=== PATIENT | male | born 1935 | race Caucasian/White ===

== ENCOUNTER 2017-07-24 09:50 | Emergency (ER) | payer OTHER ==
[~2017-07-24] VITALS: Ht 177.8 cm; Wt 90.7 kg
[~2017-07-24 09:50] MED LIST: ASPI81CH PO; ASPI81EC; ASPI81EC PO; CALCIUM; CALGLU500; CHOL10002; CLOP75 PO; CYAN1000 PO; DIPASPER; DIPASPER PO; DIPY25; FURO20 PO; FURO40; HYDACE5 PO; HYDR1TAB94 PO; LISI20; LISI20 PO; LOSA50 PO; LOVA40; MAGOXI400; MAGOXI400 PO; MEGARED KRILL OIL; MEGARED KRILL OIL PO; OMEP20ER; OMEP20ER PO; POLTRIOPSO OD; POTCHL20ER PO; SIMV10 PO; UBID10 PO
[2017-07-24 10:27] LABS: BASOPHILS ABSOLUTE AUTO 0.04 K/mm3 (0.00-0.23); BASOPHILS PERCENT AUTO 0 % (0-2); EOSINOPHILS ABSOLUTE AUTO 0.22 K/mm3 (0.00-0.68); EOSINOPHILS PERCENT AUTO 2 % (0-6); Hematocrit 42.9 % (37.0-53.0); Hemoglobin 13.9 g/dL (13.5-17.5); IMMATURE GRAN ABSOLUTE AUTO 0.02 K/mm3 (0.00-0.10); IMMATURE GRAN PERCENT AUTO 0 % (0-1); LYMPHOCYTES ABSOLUTE AUTO 1.96 K/mm3 (0.84-5.20); LYMPHOCYTES PERCENT AUTO 20 % (21-46); MONOCYTES ABSOLUTE AUTO 0.49 K/mm3 (0.16-1.47); MONOCYTES PERCENT AUTO 5 % (4-13); Mean Corpuscular HGB 27.9 pg (26.0-34.0); Mean Corpuscular HGB Conc 32.4 g/dL (31.5-36.5); Mean Corpuscular Volume 86 fL (80-100); Mean Platelet Volume 9.5 fL (9.1-12.4); NEUTROPHILS ABSOLUTE AUTO 6.94 K/mm3 (1.96-9.15); NEUTROPHILS PERCENT AUTO 72 % (41-73); Platelet Count 223 K/mm3 (150-400); RDW Coefficient Variation 13.2 % (11.7-14.2); RDW Standard Deviation 41.3 fL (35.1-46.3); Red Blood Cell Count 4.98 M/mm3 (4.30-5.90); White Blood Cell Count 9.67 K/mm3 (4.00-11.30)
[2017-07-24 10:44] LABS: Anion Gap 5 mmol/L (6-16); Blood Urea Nitrogen 17 mg/dL (8-24); Bun/Creatinine Ratio 12.3 (12.0-20.0); CO2, Blood 27 mmol/L (21-32); Calcium, Blood 8.4 mg/dL (8.5-10.1); Chloride, Blood 108 mmol/L (98-108); Creatinine, Blood 1.38 mg/dL (0.60-1.20); Glomerular Filtration Rate 52 (60-); Glucose, Blood 85 mg/dL (70-99); Potassium, Blood 4.3 mmol/L (3.5-5.5); Sodium, Blood 140 mmol/L (136-145); Troponin I <0.015 ng/mL (0.000-0.040)
[2017-07-24] MEDS ORDERED: Mobic7.5 MG PO (11:07)
[2017-07-24] MEDS ORDERED: Norco 5-325 Ta1 EACH PO (11:07)
[2017-07-24] MEDS ORDERED: HEARTBURN RELI150 M1 PO (11:12)
[2017-07-24] MEDS ORDERED: TAMS.4ER PO (11:12)
== END 2017-07-24 11:39 | disposition home or self-care (01) ==
LOC: ER 09:50
PROVIDERS: Emergency Medicine
DX: S16.1XXA Strain of muscle, fascia and tendon at neck level, initial encounter (principal); M54.12 Radiculopathy, cervical region; I10 Essential (primary) hypertension; E78.00 Pure hypercholesterolemia, unspecified; Z79.899 Other long term (current) drug therapy; Z79.82 Long term (current) use of aspirin; X50.0XXA Overexertion from strenuous movement or load, initial encounter
CPT/HCPCS: 36415; 72040; 80048; 84484; 85025; 93005; 93010; 99284

== ENCOUNTER → 2018-09-20 | Outpatient (CLI) | payer OTHER ==
[~2018-09-20] MED LIST changes: +HEARTBURN RELI150 M1 PO; +Mobic7.5 MG PO; +Norco 5-325 Ta1 EACH PO; +TAMS.4ER PO
== END | disposition home or self-care (01) ==
LOC: LAB SHORT 13:56 → PLD 13:56
DX: D48.5 Neoplasm of uncertain behavior of skin (principal)
CPT/HCPCS: 88305

== ENCOUNTER 2019-04-28 13:24 | Inpatient (IN) | payer OTHER ==
[~2019-04-28] VITALS: Ht 177.8 cm; Wt 87.3 kg
[~2019-04-28 13:24] MED LIST changes: -ASPI81CH PO; +Aspir 8181 MG PO; -FURO20 PO; +FURO40 PO; -LOSA50 PO; +LOSARTAN POTAS100 MG PO; -MEGARED KRILL OIL PO
[2019-04-28 13:37] LABS: Source, Urine Clean Catch
[2019-04-28 13:45] LABS: Bilirubin, Urine Neg (Neg); Blood, Urine Neg (Neg); Glucose Qualitative, Urine Neg (Neg); Ketones, Urine Neg (Neg); Leukocyte Esterase, Urine 1+ (Neg); Nitrite, Urine Neg (Neg); Protein, Urine Neg (Neg); Urobilinogen, Urine NORM (Normal); pH, Urine 6.5 (5.0-8.0)
[2019-04-28] MEDS ORDERED: CALC.25 PO (13:53)
[2019-04-28] MEDS ORDERED: AMLO10 PO (13:53)
[2019-04-28] MEDS ORDERED: LIDO700A20 TOP (13:54)
[2019-04-28] MEDS ORDERED: Hair, Skin & N1 EACH PO (13:57)
[2019-04-28] MEDS ORDERED: DOXA4 PO (13:59)
[2019-04-28 14:01] LABS: Appearance, Urine Clear (Clear); Color, Urine Yellow (P-Yellow)
[2019-04-28 14:03] LABS: Red Blood Cells, Urine Not Seen /hpf (0-2); Squamous Epithelial Cells Rare /hpf (Few); White Blood Cells, Urine 0-2 /hpf (0-5)
[2019-04-28 14:04] LABS: Bacteria Few /hpf
[2019-04-28 14:06] LABS: BASOPHILS ABSOLUTE AUTO 0.03 K/mm3 (0.00-0.23); BASOPHILS PERCENT AUTO 0 % (0-2); EOSINOPHILS ABSOLUTE AUTO 0.23 K/mm3 (0.00-0.68); EOSINOPHILS PERCENT AUTO 3 % (0-6); Hematocrit 43.1 % (37.0-53.0); Hemoglobin 13.5 g/dL (13.5-17.5); IMMATURE GRAN ABSOLUTE AUTO 0.02 K/mm3 (0.00-0.10); IMMATURE GRAN PERCENT AUTO 0 % (0-1); LYMPHOCYTES ABSOLUTE AUTO 1.93 K/mm3 (0.84-5.20); LYMPHOCYTES PERCENT AUTO 23 % (21-46); MONOCYTES ABSOLUTE AUTO 0.44 K/mm3 (0.16-1.47); MONOCYTES PERCENT AUTO 5 % (4-13); Mean Corpuscular HGB 28.4 pg (26.0-34.0); Mean Corpuscular HGB Conc 31.3 g/dL (31.5-36.5); Mean Corpuscular Volume 91 fL (80-100); Mean Platelet Volume 10.5 fL (9.1-12.4); NEUTROPHILS ABSOLUTE AUTO 5.78 K/mm3 (1.96-9.15); NEUTROPHILS PERCENT AUTO 69 % (41-73); Platelet Count 198 K/mm3 (150-400); RDW Coefficient Variation 13.2 % (11.7-14.2); RDW Standard Deviation 44.4 fL (35.1-46.3); Red Blood Cell Count 4.75 M/mm3 (4.30-5.90); White Blood Cell Count 8.43 K/mm3 (4.00-11.30)
[2019-04-28 14:29] LABS: Alanine Aminotransfer (ALT/SGP 13 U/L (12-78); Albumin, Blood 3.4 g/dL (3.4-5.0); Albumin/Globulin Ratio 1.2 (0.8-1.8); Alk Phos 95 U/L (50-136); Anion Gap 7 mmol/L (6-16); Aspartate Aminotrans (AST/SGOT 10 U/L (12-37); Bilirubin, Total 0.7 mg/dL (0.1-1.0); Blood Urea Nitrogen 35 mg/dL (8-24); Bun/Creatinine Ratio 16.3 (12.0-20.0); CO2, Blood 25 mmol/L (21-32); Calcium, Blood 8.5 mg/dL (8.5-10.1); Chloride, Blood 109 mmol/L (98-108); Creatinine, Blood 2.15 mg/dL (0.60-1.20); Globulin, Blood 2.8 g/dL (2.2-4.0); Glomerular Filtration Rate 31 (60-); Glucose, Blood 128 mg/dL (70-99); Potassium, Blood 4.5 mmol/L (3.5-5.5); Sodium, Blood 141 mmol/L (136-145); Total Protein, Blood 6.2 g/dL (6.4-8.2); Troponin I <0.015 ng/mL (0.000-0.040)
[2019-04-28] MEDS ORDERED: FISH OIL PO (16:21)
[2019-04-28] MEDS ORDERED: CALCIUM CIT 311 EACH PO (16:22)
--- NOTE | 2019-04-28 18:29 | NUR ---
PATIENT ARRIVED AT 1650 FROM ED VIA GURNEY. A&O X 3, PRESENTS WITH STUBBORN FACADE. CARDIAC RHYTHM SHOWS SECOND DEGREE C[facility] H[facility] I BLOCK, WITH INTERMITTENT EPISODES OF BRADYCARDIA TO MID 50'S. 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 PATIENT ASYMTOMATIC. LUNGS WITH FINE CRACKLES IN RLL, ON RA, DENIES SOB. USES URINAL WITH ASSISTANCE, HAS FREQUENCY POSSIBLY R/T BPH. DENIES CHEST DISCOMFORT. HAS INTERMITTENT L FLANK PAIN; HE WAS USING ABD BINDER WHICH HELPS WITH PAIN. ANDRÉS WILL STAY AT BEDSIDE TONIGHT.
--- NOTE | 2019-04-28 20:00 | NUR ---
PATIENT RESTING IN BED VISITING WITH FAMILY AND FRIENDS. UP TO SIDE OF BED TO USE URINAL WITHOUT DIFFICULTY. PATIENT HAVING NO COMPLAINT OF DIZZINESS OR WEAKNESS. PACER PATCHES REMAIN IN PLACE IF NEEDED.
[2019-04-29 03:19] LABS: BASOPHILS ABSOLUTE AUTO 0.03 K/mm3 (0.00-0.23); BASOPHILS PERCENT AUTO 0 % (0-2); EOSINOPHILS ABSOLUTE AUTO 0.28 K/mm3 (0.00-0.68); EOSINOPHILS PERCENT AUTO 4 % (0-6); Hematocrit 37.7 % (37.0-53.0); Hemoglobin 12.2 g/dL (13.5-17.5); IMMATURE GRAN ABSOLUTE AUTO 0.01 K/mm3 (0.00-0.10); IMMATURE GRAN PERCENT AUTO 0 % (0-1); LYMPHOCYTES ABSOLUTE AUTO 1.86 K/mm3 (0.84-5.20); LYMPHOCYTES PERCENT AUTO 26 % (21-46); MONOCYTES ABSOLUTE AUTO 0.49 K/mm3 (0.16-1.47); MONOCYTES PERCENT AUTO 7 % (4-13); Mean Corpuscular HGB 28.8 pg (26.0-34.0); Mean Corpuscular HGB Conc 32.4 g/dL (31.5-36.5); Mean Corpuscular Volume 89 fL (80-100); Mean Platelet Volume 10.4 fL (9.1-12.4); NEUTROPHILS ABSOLUTE AUTO 4.59 K/mm3 (1.96-9.15); NEUTROPHILS PERCENT AUTO 63 % (41-73); Platelet Count 190 K/mm3 (150-400); RDW Coefficient Variation 13.2 % (11.7-14.2); RDW Standard Deviation 43.1 fL (35.1-46.3); Red Blood Cell Count 4.24 M/mm3 (4.30-5.90); White Blood Cell Count 7.26 K/mm3 (4.00-11.30)
[2019-04-29 03:41] LABS: Anion Gap 5 mmol/L (6-16); Blood Urea Nitrogen 33 mg/dL (8-24); Bun/Creatinine Ratio 16.1 (12.0-20.0); CO2, Blood 28 mmol/L (21-32); Calcium, Blood 8.2 mg/dL (8.5-10.1); Chloride, Blood 111 mmol/L (98-108); Creatinine, Blood 2.05 mg/dL (0.60-1.20); Glomerular Filtration Rate 33 (60-); Glucose, Blood 91 mg/dL (70-99); Potassium, Blood 4.6 mmol/L (3.5-5.5); Sodium, Blood 144 mmol/L (136-145); Troponin I <0.015 ng/mL (0.000-0.040)
--- NOTE | 2019-04-29 06:42 | NUR ---
SUMMARY PATIENT RESTING QUIETLY T/O NIGHT. NO EPISODES OF ALISA RHYTHM DURING THE NIGHT. UP TO SIDE OF BED SEVERAL TIMES DURING THE NIGHT TO VOID WITHOUT DIFFICULTY. PATIENTS AT BEDSIDE T/O THE NIGHT.
--- NOTE | 2019-04-29 10:00 | NUR ---
Patient gave permission for this student nurse to deliver care.
--- NOTE | 2019-04-29 10:17 | NUR ---
Echocardiogram completed.
--- NOTE | 2019-04-29 11:05 | NUR ---
PT DENIES PAIN OR DISTRESS AT THIS TIME AND NO HEART RELATED SYMPTOMS. PT CONT HAVE SOME L FLANK "GRIPPING" PAINS AT TIMES BUT IS BECOMING LESS FREQUENT PER PT. VS NOTED. PT INSTRUCTED AT TO GETTING OOB ONLY WITH ASSISTANCE.
--- NOTE | 2019-04-29 15:46 | NUR ---
PT REPORT CALLED TO JOHANA BETHEA AND PT WILL BE TRANSFERED TO U-5 W/C. PT IS WITH PT AND PT HAS BEEN OOB AND MINIMAL SBA.
--- NOTE | 2019-04-29 18:11 | NUR ---
SHIFT NOTE PT ARRIVED FROM ICU 11 AT 1630. PT DENIES SOB OR CP. PT CAME IN LAST NOC WITH FLANK PAIN AND WAS NOTED TO HAVE 3RD DEGREE BLOCK WHICH HE WILL BE GOING FOR PACEMAKER PLACEMENT TOMORROW. PT OTHER SERRANO ALERT AND ORIENTED AND ANSWERIG QUESTIONS APPROPRIATELY. IN ICU PT HAD BEEN SPONTANEOUS BUT HAS USED CALL LIGHT APPROPRAITELY
--- NOTE | 2019-04-30 06:23 | NUR ---
SHIFT SUMMARY PT HAS REMAINED AOX4 THROUGHOUT SHIFT. VSS. PLEASANT AND COOPERATIVE WITH CARE. PT HAS RESTED WELL THROUGHOUT THE NIGHT, WAKING EASILY FOR CARE. PT AMBULATES TO THE RESTROOM WITH MINIMAL ASSIST. SHOWER GIVEN THIS AM PRIOR TO ANTICIPATED PROCEDURE. PT HAS REMAINED NPO SINCE MIDNIGHT EXCEPT FOR OCCASIONAL ICE CHIPS. CARDIAC RHYTHM HAS REMAINED IN FIRST DEGREE HB WITH PACs. PT DENIES CHEST PAIN AND DYSPNEA. SPOUSE HAS REMAINED AOX BEDSIDE THROUGHOUT THE NIGHT. PT WANTS IT TO BE KNOWN THAT HE IS OF [place]'S WITNESS OFE AND DOES NOT WISH TO RECEIVE BLOOD OR BLOOD PRODUCTS- SIGNED REFUSAL IN CHART. NO OTHER CHANGES NOTED FROM INITIAL ASSESSMENT. WILL CONTINUE TO MONITOR AND REPORT TO ONCOMING SHIFT RN. BED IN LOW POSITION. CALL LIGHT IN REACH.
[2019-04-30 06:54] LABS: International Normalized Ratio 1.11; Prothrombin Time Results 11.7 Sec (9.7-11.5)
--- NOTE | 2019-04-30 09:02 | NUR ---
PT TO [facility] FOR PACER PLACEMENT.
--- NOTE | 2019-04-30 11:04 | NUR ---
PT BACK FROM [facility] POST PACEMAKER PLACEMENT. PT LYING IN BED SLEEPING BUT AWAKENS TO VERBAL STIMULI. PT DENIES ANY COMPLAINTS. PACEMAKER TO LEFT CHEST WALL C/D/I WITH DRESSING IN PLACE. TELE PACED AT 60. VSS. WILL CONT TO MONITOR.
--- NOTE | 2019-04-30 18:16 | NUR ---
SHIFT SUMMARY- PT A/OX4, PT DENIES ANY COMPLAINTS. LS CLEAR, ON RA. TELE NSR AT 68. PACER PLACED TO LCW THIS AM, SITES C/D/I, SLING IN PLACE. VSS. 1 ASSIST WITH FWW UP OUT OF BED. PT QUITE DROWSY AFTER PACER PLACEMENT, PT AWAKE AND EATING DINNER THIS EVENING. FAMILY AT BEDSIDE T/O THE DAY. NO OTHER ACUTE CHANGES THIS SHIFT.
--- NOTE | 2019-04-30 20:00 | NUR ---
ASSUMED CARE PT CARE ASSUMED @ APPROXIMATELY 1900. PT IS AOX4 AND RESTING IN BED COMFORTABLY. POST PACEMAKER SURGICAL SITE TO L UPPER CHEST DRESSING WITH GAUZE AND CLEAR TEGADERM COVERING PACEMAKER SITE. SMALL AMOUNT OF SEROUS DRAINAGE NOTED TO BOTTOM OF DRESSING. NO REDNESS OR SWELLING TO AREA. PT DENIES PAIN TO SITE. L ARM IN SLING AND PT PROVIDED WITH POST-PACEMAKER EDUCATION. INSTRUCTED TO CALL FOR ASSISTANCE WITH AMBULATION AND NEEDS. BED IN LOW POSITION. CALL LIGHT IN REACH.
[2019-05-01 04:27] LABS: Bun/Creatinine Ratio 17.6 (12.0-20.0); Calcium, Blood 8.3 mg/dL (8.5-10.1); Creatinine, Blood 2.05 mg/dL (0.60-1.20); Potassium, Blood 4.4 mmol/L (3.5-5.5)
--- NOTE | 2019-05-01 06:00 | NUR ---
SHIFT SUMMARY PT HAS REMAINED AOX4 THROUGHOUT SHIFT. VSS. PLEASANT AND COOPERATIVE WITH CARE. PT CONTINUES TO AMBULATE WITH STANDBY ASSIST TO RESTROOM WITHOUT DIFFICULTY. PACER SITE REMAINS UNCHANGED THROUGHOUT THE NIGHT. DRESSING REMAINS CLEAN, DRY AND INTACT WITH NO ADDITIONAL DRAINAGE. PT DENIES PAIN TO SITE. CARDIAC RHYTHM REMAINS PACED THROUGHOUT THE NIGHT. SPOUSE HAS REMAINED AT BEDSIDE THROUGHOUT SHIFT. NO OTHER CHANGES NOTED FROM INITIAL ASSESSMENT. WILL CONTINUE TO MONITOR AND REPORT TO ONCOMING SHIFT RN. BED IN LOW POSITION, CALL LIGHT IN REACH.
--- NOTE | 2019-05-01 08:21 | NUR ---
pt laying in bed awake a/ox3, pleasant and cooperative with care, follows commands well, denies pain, states she feels good, had a good night last night, lungs are clear t/o, is on r/a, resp even and unlabord, no cough noted, hrr, tele in place running first degree with bbb, no edema noted, ppp+1, cap refill <3sec, vs stable, afebrile, iv site is clear and patent, bt x4, abd flat soft nontender, voids with out diff, skin c/w/d, maew, demetri, call light in reach.
[2019-05-01] MEDS ORDERED: METO50ER PO (10:20)
[2019-05-01] MEDS ORDERED: DOXA4 PO (10:20)
--- NOTE | 2019-05-01 10:41 | NUR ---
PT HAS BEEN DISCHARGED TO HOME, WENT OVER ALL DISCHARGE INSTRUCTIONS WITH HIM AND HIS , THEY VERBALIZED UNDERSTANDING, DR. HARDING GAVE HIM HIS PREPRINTED INSTRUCTIONS. NEW MEDICATION FAXED TO [facility], IV REMOVED INTACT, PT HAS ARM SLING IN PLACE WITH INSTRUCTION FOR THAT. LEFT VIA WHEELCHAIR WITH AND CONVENTIONAL MACHINIST IN ATTENDENCE.
--- NOTE | 2019-05-01 13:31 | NUR ---
Pt. is doing much better and may go home today offered prayers.
== END 2019-05-01 10:59 | disposition home or self-care (01) | DRG 243 ==
LOC: ER 13:24 → ICUW 16:07 → PCU 04-29 15:58
PROVIDERS: Internal Medicine Cardiovascular Disease; Physician Assistant; ADMIT Hospitalist
PROC: 0JH606Z Insertion of Pacemaker, Dual Chamber into Chest Subcutaneous Tissue and Fascia, Open Approach (ICD-10-PCS; principal; 2019-04-30)
PROC: 02HK3JZ Insertion of Pacemaker Lead into Right Ventricle, Percutaneous Approach (ICD-10-PCS; 2019-04-30)
PROC: 02H63JZ Insertion of Pacemaker Lead into Right Atrium, Percutaneous Approach (ICD-10-PCS; 2019-04-30)
DX: I44.39 Other atrioventricular block (principal); N17.9 Acute kidney failure, unspecified; J84.9 Interstitial pulmonary disease, unspecified; Q60.0 Renal agenesis, unilateral; N18.4 Chronic kidney disease, stage 4 (severe); E78.5 Hyperlipidemia, unspecified; G47.33 Obstructive sleep apnea (adult) (pediatric); I35.1 Nonrheumatic aortic (valve) insufficiency; Z79.82 Long term (current) use of aspirin; I12.9 Hypertensive chronic kidney disease with stage 1 through stage 4 chronic kidney disease, or unspecified chronic kidney disease; Z87.891 Personal history of nicotine dependence
CPT/HCPCS: 33208; 36415; 71045; 71046; 80048; 80053; 81001; 83880; 84443; 84484; 85025; 85610; 87086; 93005; 93010; 93306; 99152; 99153; 99285-25; C1785; C1898; J0690; J1644; J1650; J2250; J3010; J7030; J7040; J7050

== ENCOUNTER → 2020-01-16 | Outpatient (CLI) | payer OTHER ==
[~2020-01-16] MED LIST changes: +AMLO10 PO; +CALC.25 PO; +CALCIUM CIT 311 EACH PO; +DOXA4 PO; +FISH OIL PO; +Hair, Skin & N1 EACH PO; +LIDO700A20 TOP; +METO50ER PO
== END | disposition home or self-care (01) ==
LOC: PLD 07:29 → LAB SHORT 07:29
DX: L57.0 Actinic keratosis (principal); L57.8 Other skin changes due to chronic exposure to nonionizing radiation
CPT/HCPCS: 88305; 88313

== ENCOUNTER 2020-12-11 17:15 | Inpatient (IN) | payer OTHER ==
[~2020-12-11] VITALS: Ht 177.8 cm; Wt 87.0 kg
[~2020-12-11 17:15] MED LIST changes: +Cardura Xl8 MG PO
[2020-12-11] MEDS ORDERED: ELIQUIS5 M2 PO (17:29)
[2020-12-11] MEDS ORDERED: HYDRA50 PO (17:30)
[2020-12-11] MEDS ORDERED: FINA5 PO (17:30)
[2020-12-11] MEDS ORDERED: POTA10T PO (17:30)
[2020-12-11] MEDS ORDERED: TORSE20 PO (17:31)
[2020-12-11 19:17] LABS: BASOPHILS ABSOLUTE AUTO 0.03 K/mm3 (0.00-0.23); BASOPHILS PERCENT AUTO 0 % (0-2); EOSINOPHILS ABSOLUTE AUTO 0.24 K/mm3 (0.00-0.68); EOSINOPHILS PERCENT AUTO 3 % (0-6); Hematocrit 34.7 % (37.0-53.0); Hemoglobin 11.3 g/dL (13.5-17.5); IMMATURE GRAN ABSOLUTE AUTO 0.01 K/mm3 (0.00-0.10); IMMATURE GRAN PERCENT AUTO 0 % (0-1); LYMPHOCYTES ABSOLUTE AUTO 1.51 K/mm3 (0.84-5.20); LYMPHOCYTES PERCENT AUTO 18 % (21-46); MONOCYTES ABSOLUTE AUTO 0.56 K/mm3 (0.16-1.47); MONOCYTES PERCENT AUTO 7 % (4-13); Mean Corpuscular HGB Conc 32.6 g/dL (31.5-36.5); Mean Corpuscular Volume 83 fL (80-100); Mean Platelet Volume 11.9 fL (9.1-12.4); NEUTROPHILS ABSOLUTE AUTO 6.06 K/mm3 (1.96-9.15); NEUTROPHILS PERCENT AUTO 72 % (41-73); Platelet Count 197 K/mm3 (150-400); RDW Coefficient Variation 14.3 % (11.7-14.2); RDW Standard Deviation 43.1 fL (35.1-46.3); Red Blood Cell Count 4.18 M/mm3 (4.30-5.90); White Blood Cell Count 8.41 K/mm3 (4.00-11.30)
[2020-12-11 19:33] LABS: Alanine Aminotransfer (ALT/SGP 12 U/L (12-78); Albumin, Blood 3.2 g/dL (3.4-5.0); Alk Phos 80 U/L (50-136); Anion Gap 7 mmol/L (6-16); Aspartate Aminotrans (AST/SGOT 13 U/L (12-37); Bilirubin, Total 0.6 mg/dL (0.1-1.0); Blood Urea Nitrogen 55 mg/dL (8-24); Bun/Creatinine Ratio 23.2 (12.0-20.0); CO2, Blood 25 mmol/L (21-32); Calcium, Blood 8.6 mg/dL (8.5-10.1); Chloride, Blood 109 mmol/L (98-108); Creatinine, Blood 2.37 mg/dL (0.60-1.20); Globulin, Blood 3.1 g/dL (2.2-4.0); Glomerular Filtration Rate 28 (60-); Glucose, Blood 85 mg/dL (70-99); Potassium, Blood 4.1 mmol/L (3.5-5.5); Sodium, Blood 141 mmol/L (136-145); Total Protein, Blood 6.3 g/dL (6.4-8.2); Troponin I <0.015 ng/mL (0.000-0.040)
--- NOTE | 2020-12-12 04:02 | NUR ---
SHIFT SUMMARY- PT. NEW ADMIT FROM ED. A&OX4, AMBULATES IN ROOM W/O DIFFICULTY. PT. ABLE TO MAKE NEEDS KNOWN, HAD NO COMPLAINTS OF PAIN OR DISCOMFORT DURING THE NIGHT. ON RA, SLEPT T/O THE NIGHT, NO APPARENT DISTRESS NOTED. VSS. CALL LIGHT WITHIN REACH AND SIDE RAILS UPX2. WILL CONT TO MONITOR.
[2020-12-12 05:15] LABS: Calcium, Blood 8.4 mg/dL (8.5-10.1); Creatinine, Blood 2.2 mg/dL (0.60-1.20)
--- NOTE | 2020-12-12 16:29 | NUR ---
Echocardiogram completed.
--- NOTE | 2020-12-12 18:29 | NUR ---
SHIFT SUMMARY- PT IS A/O, PLESANT AND COOPERATIVE. HE IS EATING AND DRINKING WELL. HE SLEPT INTERMITENTLY THROUGHTOUT THIS SHIFT. HE TOOK A SHOWER THIS SHIFT. HE RECIEVED AN ECHO AND A CHEST XRAY THIS SHIFT. DR. MONACO CAME BACK THIS AFTERNOON AND SPOKE WITH THE PT AND HIS . HIS BED IS IN THE LOW POSITION AND CALL LIGHT IS WITIN REACH.
--- NOTE | 2020-12-13 05:48 | NUR ---
SHIFT SUMMARY- NO ACUTE EVENTS OVERNIGHT. PT. ASLEEP MOST OF THE NIGHT. DENIED C/O PAIN OR DISCOMFORT. PT. AMBULATES INDEPENDENTLY TO BATHROOM W/O DIFFICULTY. NO ACUTE DISTRESS T/O THE NIGHT, VSS. CALL LIGHT WITHIN REACH AND SIDE RAILS UP X2. WILL CONT TO MONITOR.
[2020-12-13 08:26] LABS: Bun/Creatinine Ratio 24.4 (12.0-20.0); Calcium, Blood 8.2 mg/dL (8.5-10.1); Creatinine, Blood 2.09 mg/dL (0.60-1.20); Potassium, Blood 3.6 mmol/L (3.5-5.5)
--- NOTE | 2020-12-13 18:24 | NUR ---
SHIFT SUMMARY- PT IS A/O, PLESANT AND COOPERATIVE. HE IS EATING AND DRINKING WELL. HE HAD VISITORS THIS AFTERNOON. HE IS AMBULATING TO THE RESTROOM. HE SLEPT INTERMITENTLY THROUGHOUT THIS SHIFT. HE IS RECIEVING IV LASIX. HE HAD A BM THIS SHIFT. HIS BED IS IN THE LOW POSITION AND CALL LIGHT IS WITHIN REACH.
--- NOTE | 2020-12-14 04:36 | NUR ---
SHIFT SUMMARY- NO ACUTE EVENTS OVERNIGHT. PT. RESTED QUIETLY IN BED T/O THE NIGHT, NO APPARENT DISTRESS NOTED. CONTS TO AMBULATE INDEPENDENTLY TO BATHROOM, TOLERATING WELL. DENIED PAIN OR DISCOMFORT DURING THE NIGHT, VSS. CALL LIGHT WITHIN REACH AND SIDE RAILS UPX2. WILL CONT TO MONITOR.
[2020-12-14 06:04] LABS: Bun/Creatinine Ratio 27.1 (12.0-20.0); Calcium, Blood 8.2 mg/dL (8.5-10.1); Creatinine, Blood 1.88 mg/dL (0.60-1.20); Potassium, Blood 3.4 mmol/L (3.5-5.5)
--- NOTE | 2020-12-14 19:20 | NUR ---
SHIFT SUMMARY: NO ACUTE EVENTS TO REPORT THIS SHIFT. PT A&O; CALM AND COOPERATIVE WITH CARE; INDEPENDENT IN ROOM. NO C/O PAIN / NAUSEA THIS SHIFT. TELE IN PLACE; SR c BBB & OCC PACED AT 73, PER COOPER HELPER. DIURETICS CONTINUING. REPORT GIVEN TO ONCOMING RN.
[2020-12-15 05:50] LABS: Bun/Creatinine Ratio 23.9 (12.0-20.0); Calcium, Blood 8.2 mg/dL (8.5-10.1); Creatinine, Blood 1.88 mg/dL (0.60-1.20); Potassium, Blood 3.8 mmol/L (3.5-5.5)
--- NOTE | 2020-12-15 05:57 | NUR ---
SHIFT SUMMARY NO ACUTE CHANGES THIS SHIFT. AOX4. [place]. VSS. TELE NSR c BBB @66. DENIES PAIN, N/V. REPORTS "A LITTLE SOB." SPO2 >90% ON RA. E/U RESP. RECIEVING DIURETICS, UP MULTIPLE X T/O NIGHT TO VOID. 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 STRICT I&O. +3 EDEMA RLE, +2 EDEMA LLE. PT HOPING TO DC TODAY. IND IN RM, CALL LIGHT IN REACH. WCTM.
--- NOTE | 2020-12-15 18:24 | NUR ---
SHIFT SUMMARY PT AxOx4. PLEASANT AND COOPERATIVE WITH CARE. PT INDEPENDENT IN THE ROOM. ON 2L FLUID RESTRICTION. CURRENT PLAN IS TO CONTINUE DIUERESING AND POSSIBLE DC HOME TOMORROW. VITALS REVIEWED. PT DENIES PAIN OR OTHER NEEDS AT THIS TIME. PER ARCHITECTURAL PROJECT MANAGER, TELE RUNNING PACED SR WITH BBB. PT CURRENTLY RESTING IN BED EATING DINNER WITH CALL LIGHT IN REACH.
--- NOTE | 2020-12-16 05:24 | NUR ---
CONCRETE PLANT LABORER SUMMARY NO ACUTE CHANGES THIS SHIFT. PT AAOX4 AND INDEPENDENT IN ROOM. VERY PLEASANT AND COOPERATIVE WITH CARE. PT REPORTS MINIMAL SOB WITH EXERTION, GETS UP TO THE BATHROOM INDEPENDENTLY WITH NO ISSUES. DIURESING WELL, BLE STILL PRESENT WITH R LEG MORE SWOLLEN THAN L LEG. NO ACUTE CHANGES ON TELEMETRY. VSS, WILL CONTINUE TO MONITOR.
[2020-12-16 05:59] LABS: Bun/Creatinine Ratio 24.6 (12.0-20.0); Calcium, Blood 8.5 mg/dL (8.5-10.1); Creatinine, Blood 1.79 mg/dL (0.60-1.20)
--- NOTE | 2020-12-16 10:23 | NUR ---
PT TO DISCHARGE HOME. IV REMOVED, NO SS OF INFECTION NOTED. PT SHOWERED . TO COME AND THIS NURSE TO GO OVER MEDS. PT MEDS SENT TO [facility] . TO BE WHEELED OUT AND TAKEN HOME BY .
== END 2020-12-16 11:45 | disposition home or self-care (01) | DRG 291 ==
LOC: ER 17:15 → MEDS 20:41
PROVIDERS: Emergency Medicine; Family Medicine; Internal Medicine; ADMIT Family Medicine
DX: I13.0 Hypertensive heart and chronic kidney disease with heart failure and stage 1 through stage 4 chronic kidney disease, or unspecified chronic kidney disease (principal); I50.33 Acute on chronic diastolic (congestive) heart failure; N17.9 Acute kidney failure, unspecified; D63.1 Anemia in chronic kidney disease; G47.33 Obstructive sleep apnea (adult) (pediatric); I87.8 Other specified disorders of veins; E87.6 Hypokalemia; N18.30 Chronic kidney disease, stage 3 unspecified; E78.5 Hyperlipidemia, unspecified; Z88.8 Allergy status to other drugs, medicaments and biological substances; Z86.73 Personal history of transient ischemic attack (TIA), and cerebral infarction without residual deficits; Z87.891 Personal history of nicotine dependence; Z90.5 Acquired absence of kidney; Z98.890 Other specified postprocedural states; Z79.01 Long term (current) use of anticoagulants; Z79.899 Other long term (current) drug therapy; Z86.718 Personal history of other venous thrombosis and embolism; Z95.0 Presence of cardiac pacemaker
CPT/HCPCS: 36415; 71045; 80048; 80053; 83880; 84484; 85025; 93005; 93010; 93306; 99285-25; A9270; J1940

== ENCOUNTER → 2021-01-29 | Outpatient (CLI) | payer OTHER ==
[~2021-01-29] MED LIST changes: +ELIQUIS5 M2 PO; +FINA5 PO; +HYDRA50 PO; +POTA10T PO; +TORSE20 PO
== END | disposition home or self-care (01) ==
LOC: LAB SHORT 12:00 → LAB 12:00
DX: R39.81 Functional urinary incontinence (principal)
CPT/HCPCS: 87086

== ENCOUNTER → 2021-02-02 | Outpatient (CLI) | payer OTHER | END | disposition home or self-care (01) | LOC: LAB SHORT 12:17 → LAB 12:17 | DX: D23.5 Other benign neoplasm of skin of trunk (principal) | CPT/HCPCS: 88305 ==